=== PATIENT | male | born 1990 | race Caucasian/White ===

== ENCOUNTER 2020-09-23 19:55 | Emergency (ER) | payer OTHER ==
[2020-09-23] MEDS ORDERED: Sodium Chloride 0.9% 1000 ML 1,000 ML IV STA ×2 (20:12→21:56)
[2020-09-23] MEDS ORDERED: Sodium Chloride 0.9% 1000 ML 1,000 ML ONE ×2 (20:38→21:55)
[2020-09-23 20:42] LABS: BASOPHIL % 0.1 % (0.0-0.4); Basophil (Absolute #) 0.01 (0-0.4); Eosinophil % 0.1 % (0.00-5.0); Eosinophil (Absolute #) 0.01 (0-0.5); Hematocrit 49.3 % (42-50); Hemoglobin 16.8 gm/dl (12.5-18.0); Lymphocyte (Absolute #) 1.32 (1.0-4.6); Lymphocytes % 7.4 % (24.0-44.0); Mean Cell Volume 91.8 fl (78-100); Mean Corpuscular Hemoglobin 31.3 pg (26-32); Mean Corpuscular Hgb Concent. 34.1 g/dl (32-36); Mean Platelet Volume 10.7 fl (7.5-11.0); Monocyte (Absolute #) 1.09 (0.0-1.3); Monocytes % 6.1 % (0.0-12.0); Neutrophil % 86.3 % (36.0-66.0); Platelet Count 264 K/mm3 (150-450); Red Blood Count 5.37 M/mm3 (4.1-5.6); Red Cell Distribution Width 14.4 % (11.5-14.0); White Blood Count 17.7 K/mm3 (4.0-10.5)
[2020-09-23 21:00] LABS: ALBUMIN 5.7 g/dL (3.5-5.0); ALKALINE PHOSPHATASE 78 U/L (38-126); ANION GAP 24.2 MEQ/L (5-15); BLOOD UREA NITROGEN 15 mg/dL (9-20); CHLORIDE 101 mmol/L (98-107); Calcium 10.4 mg/dL (8.4-10.2); Carbon Dioxide 23 mmol/L (22-30); Creatinine 1 1.87 mg/dL (0.66-1.25); EST GLOMERULAR FILTRATION RATE 45.6 ML/MIN; ETHYL ALCOHOL < 10 mg/dL (0-10); Glucose 125 mg/dL (74-106); Potassium 4.6 mmol/L (3.5-5.1); SALICYLATE < 1.0 mg/dL (2-20); SGOT/AST 87 U/L (17-59); SODIUM 144 mmol/L (137-145); Total Protein 8.7 g/dL (6.3-8.2)
[2020-09-23 21:06] LABS: SGPT/ALT 89 U/L (0-50)
--- NOTE | 2020-09-23 21:56 | ERPHSYRPT ---
- History of Present Illness Time Seen by Provider: 09/23/20 20:00 Source: patient Exam Limitations: no limitations Patient Subjective Stated Complaint: pt brought in by Police for medical clearance/help Triage Nursing Assessment: Pt brought in by police for medial clearance/work up. Pt denies any thoughts of suicide of homicide. Pt was picked up at his grandparents home where he was jittery, chewing on plastic and cords, tearing up things, acting as he's on drugs and the grandparents want him to get help. He just got out of alf yesterday. Pt pupils are dilated largely, he is very sweaty and jittery but has been cooperative for the most part. Officers in room with pt. Pt does not want to consent for blood draw so officer was going to go ED pt. Physician History: Patient is a 30-year-old male presents to our emergency room escorted by police for evaluation of self-harm. Patient was just released from alf yesterday. He was at his grandparents house. Grandparents observed erratic dangerous behavior. Per report patient has been jittery. Patient has been chewing on plastic and cords. Police report that patient has been "tearing up things" at the grandparents house. Grandparents believe he is on drugs. Patient is sitting in bed. He is cooperative. Patient observed to be diaphoretic. Pupils are dilated. Patient denied homicidal suicidal ideation. However patient also denied using drugs. Patient initially declined work-up/blood draw however patient was encouraged by police and is not cooperative. Patient voices no other complaints or concerns at this time. Timing/Duration: today Severity of Symptoms-Max: mild Context related to: other Suicidal thoughts: gesture Associated Symptoms: angry, anxiety Previous symptoms: no prior history Allergies/Adverse Reactions: No Known Drug Allergies Allergy (Unverified 09/23/20 20:29) Home Medications: No Reportable Medications [No Reported Medications] 09/23/20 [History] Hx Tetanus, Diphtheria Vaccination/Date Given: Yes Hx Influenza Vaccination/Date Given: No Hx Pneumococcal Vaccination/Date Given: No Immunizations Up to Date: Yes Travel Risk - International Travel Have you traveled outside of the country in past 3 weeks: No - Coronavirus Screening Are you exhibiting any of the following symptoms?: No Close contact with a COVID-19 positive Pt in past 14-21 Days: No - Vaccine Status Have you recieved a Covid-19 vaccination: No - Past Medical History Pertinent Past Medical History: Yes Neurological History: No Pertinent History ENT History: No Pertinent History Cardiac History: No Pertinent History Respiratory History: No Pertinent History Endocrine Medical History: No Pertinent History Musculoskeletal History: No Pertinent History GI Medical History: No Pertinent History History: No Pertinent History Psycho-Social History: Anxiety, Bipolar, Depression, Other Male Reproductive Disorders: No Pertinent History Other Medical History: PTSD - Past Surgical History Past Surgical History: No - Social History Smoking Status: Former smoker Exposure to second hand smoke: Yes Drug Use: marijuana Patient Lives Alone: No - Review of Systems Constitutional: No Symptoms, No Fever, No Chills Eyes: No Symptoms Ears, Nose, & Throat: No Symptoms Respiratory: No Symptoms, No Cough, No Dyspnea Cardiac: No Symptoms, No Chest Pain, No Edema, No Syncope Abdominal/Gastrointestinal: No Symptoms, No Abdominal Pain, No Nausea, No Vomiting, No Diarrhea Genitourinary Symptoms: No Symptoms, No Dysuria Musculoskeletal: No Symptoms, No Back Pain, No Neck Pain Skin: No Symptoms, No Rash Neurological: No Symptoms, No Dizziness, No Focal Weakness, No Sensory Changes Psychological: No Symptoms Endocrine: No Symptoms Hematologic/Lymphatic: No Symptoms Immunological/Allergic: No Symptoms All Other Systems: Reviewed and Negative - Nursing Vital Signs Nursing Vital Signs: Initial Vital Signs Temperature 97.8 F 09/23/20 19:58 Pulse Rate 168 H 09/23/20 19:58 Respiratory Rate 22 09/23/20 19:58 O2 Sat by Pulse Oximetry 98 09/23/20 19:58 Pain Scale Pain Intensity 0 - Physical Exam General Appearance: mild distress (Patient appears agitated and anxious.) Eyes, Ears, Nose, Throat Exam: normal ENT inspection, moist mucous membranes Neck Exam: normal inspection, non-tender, supple Respiratory Exam: normal breath sounds, lungs clear, No respiratory distress Cardiovascular Exam: regular rate/rhythm, No edema Gastrointestinal/Abdominal Exam: soft, No tenderness, No distention Extremities Exam: normal inspection, normal range of motion, No evidence of injury, No edema Current Suicidality: denies suicide plan Neurological Exam: alert, core piler II-XII nml as tested, oriented x 3 Appearance: denies illness, disheveled, impaired insight Behavior/Eye Contact/Speech: good eye contact, agitated Thoughts/Hallucinations: normal thought pattern Skin Exam: normal color, warm, dry, No rash SpO2 Interpretation: normal SpO2: 96 O2 Delivery: Room Air - Course Nursing assessment & vital signs reviewed: Yes EKG Interpreted by Me: RATE ([id number]), Sinus Tach, NORMAL AXIS, NORMAL INTERVALS Ordered Tests: Active Orders 24 hr Category Date Time Status IV Insertion STAT Care 09/23/20 20:12 Active CBC W DIFF Stat Lab 09/23/20 20:35 Completed CK (IN-HOUSE) [CK-Creatinine Phosphokinase] Stat Lab 09/23/20 21:34 Completed CMP Stat Lab 09/23/20 20:35 Completed CULTURE,URINE Stat Lab 09/23/20 22:58 Received ETHYL ALCOHOL Stat Lab 09/23/20 20:35 Completed SALICYLATE Stat Lab 09/23/20 20:35 Completed UA W/RFX UR CULTURE Stat Lab 09/23/20 22:58 Completed Urine Triage Profile Stat Lab 09/23/20 22:58 Completed Medication Summary Discontinued Medications Generic Name Dose Route Start Last Admin Trade Name Freq PRN Reason Stop Dose Admin Haloperidol Lactate 5 mg 09/23/20 23:48 09/23/20 23:59 Haldol 5 Mg IM 09/23/20 23:49 5 mg STAT ONE Administration Haloperidol Lactate Confirm 09/23/20 23:58 Haldol 5 Mg Administered 09/23/20 23:59 Dose 5 mg .ROUTE .STK-MED ONE Sodium Chloride 1,000 mls @ 999 mls/hr 09/23/20 20:12 09/23/20 22:00 Sodium Chloride 0.9% 1000 Ml IV 09/23/20 21:12 Infused .Q1H1M STA Infusion Sodium Chloride Confirm 09/23/20 20:38 Sodium Chloride 0.9% 1000 Ml Administered 09/23/20 20:39 Dose 1,000 mls @ ud .ROUTE .STK-MED ONE Sodium Chloride 1,000 mls @ 999 mls/hr 09/23/20 21:56 09/23/20 21:59 Sodium Chloride 0.9% 1000 Ml IV 09/23/20 22:56 999 mls/hr .Q1H1M STA Administration Sodium Chloride Confirm 09/23/20 21:55 Sodium Chloride 0.9% 1000 Ml Administered 09/23/20 21:56 Dose 1,000 mls @ ud .ROUTE .STK-MED ONE Ketamine HCl 86 mg 09/23/20 22:39 09/23/20 23:10 Ketamine Hcl 50 Mg/Ml IM 09/23/20 22:40 86 mg STAT ONE Administration Lorazepam 2 mg 09/23/20 23:48 09/23/20 23:59 Ativan 2 Mg/1 Ml Vial IM 09/23/20 23:49 2 mg STAT ONE Administration Lorazepam Confirm 09/23/20 23:58 Ativan 2 Mg/1 Ml Vial Administered 09/23/20 23:59 Dose 2 mg .ROUTE .STK-MED ONE Lab/Rad Data: Laboratory Result Diagrams 09/23/20 20:35 09/23/20 20:35 Laboratory Results 09/23/20 09/23/20 09/23/20 Range/Units 22:58 22:58 21:34 WBC (4.0-10.5) K/mm3 RBC (4.1-5.6) M/mm3 Hgb (12.5-18.0) gm/dl Hct (42-50) % MCV (78-100) fl MCH (26-32) pg MCHC (32-36) g/dl RDW (11.5-14.0) % Plt Count (150-450) K/mm3 MPV (7.5-11.0) fl Gran % (36.0-66.0) % Eos # (Auto) (0-0.5) Absolute Lymphs (auto) (1.0-4.6) Absolute Monos (auto) (0.0-1.3) Lymphocytes % (24.0-44.0) % Monocytes % (0.0-12.0) % Eosinophils % (0.00-5.0) % Basophils % (0.0-0.4) % Absolute Granulocytes (1.4-6.9) Basophils # (0-0.4) Sodium (137-145) mmol/L Potassium (3.5-5.1) mmol/L Chloride (98-107) mmol/L Carbon Dioxide (22-30) mmol/L Anion Gap (5-15) MEQ/L BUN (9-20) mg/dL Creatinine (0.66-1.25) mg/dL Estimated GFR ML/MIN Glucose (74-106) mg/dL Calcium (8.4-10.2) mg/dL Total Bilirubin (0.2-1.3) mg/dL AST (17-59) U/L ALT (0-50) U/L Alkaline Phosphatase (38-126) U/L Creatine Kinase 233 H (55-170) U/L Serum Total Protein (6.3-8.2) g/dL Albumin (3.5-5.0) g/dL Urine Color YELLOW (YELLOW) Urine Appearance CLOUDY (CLEAR) Urine pH 5.0 (5-6) Ur Specific [place] 1.018 (1.005-1.025) Urine Protein 30 (Negative) Urine Ketones TRACE (NEGATIVE) Urine Blood MODERATE (0-5) Jay/ul Urine Nitrite NEGATIVE (NEGATIVE) Urine Bilirubin NEGATIVE (NEGATIVE) Urine Urobilinogen NEGATIVE (0-1) mg/dL Ur Leukocyte Esterase NEGATIVE (NEGATIVE) Urine WBC (Auto) 11-15 (0-5) /HPF Urine RBC (Auto) 16-25 (0-2) /HPF U Hyaline Cast (Auto) 26-50 (0-2) /LPF U Epithel Cells (Auto) NONE (FEW) /HPF Urine Bacteria (Auto) FEW (NEGATIVE) /HPF Urine Mucus (Auto) SLIGHT (NEGATIVE) /HPF Urine Culture Reflexed YES (NO) Urine Glucose NEGATIVE (NEGATIVE) mg/dL Salicylates (2-20) mg/dL Urine Opiates Level NEGATIVE (NEGATIVE) Ur Methadone NEGATIVE (NEGATIVE) Urine Barbiturates NEGATIVE (NEGATIVE) Ur Phencyclidine (PCP) NEGATIVE (NEGATIVE) Urine Amphetamine POSITIVE (NEGATIVE) U Benzodiazepine Level NEGATIVE (NEGATIVE) Urine Cocaine NEGATIVE (NEGATIVE) Urine Marijuana (THC) NEGATIVE (NEGATIVE) Ethyl Alcohol (0-10) mg/dL 09/23/20 09/23/20 Range/Units 20:35 20:35 WBC 17.7 H (4.0-10.5) K/mm3 RBC 5.37 (4.1-5.6) M/mm3 Hgb 16.8 (12.5-18.0) gm/dl Hct 49.3 (42-50) % MCV 91.8 (78-100) fl MCH 31.3 (26-32) pg MCHC 34.1 (32-36) g/dl RDW 14.4 H (11.5-14.0) % Plt Count 264 (150-450) K/mm3 MPV 10.7 (7.5-11.0) fl Gran % 86.3 H (36.0-66.0) % Eos # (Auto) 0.01 (0-0.5) Absolute Lymphs (auto) 1.32 (1.0-4.6) Absolute Monos (auto) 1.09 (0.0-1.3) Lymphocytes % 7.4 L (24.0-44.0) % Monocytes % 6.1 (0.0-12.0) % Eosinophils % 0.1 (0.00-5.0) % Basophils % 0.1 (0.0-0.4) % Absolute Granulocytes 15.30 H (1.4-6.9) Basophils # 0.01 (0-0.4) Sodium 144 (137-145) mmol/L Potassium 4.6 (3.5-5.1) mmol/L Chloride 101 (98-107) mmol/L Carbon Dioxide 23 (22-30) mmol/L Anion Gap 24.2 H (5-15) MEQ/L BUN 15 (9-20) mg/dL Creatinine 1.87 H (0.66-1.25) mg/dL Estimated GFR 45.6 ML/MIN Glucose 125 H (74-106) mg/dL Calcium 10.4 H (8.4-10.2) mg/dL Total Bilirubin 0.50 (0.2-1.3) mg/dL AST 87 H (17-59) U/L ALT 89 H (0-50) U/L Alkaline Phosphatase 78 (38-126) U/L Creatine Kinase (55-170) U/L Serum Total Protein 8.7 H (6.3-8.2) g/dL Albumin 5.7 H (3.5-5.0) g/dL Urine Color (YELLOW) Urine Appearance (CLEAR) Urine pH (5-6) Ur Specific [place] (1.005-1.025) Urine Protein (Negative) Urine Ketones (NEGATIVE) Urine Blood (0-5) Jay/ul Urine Nitrite (NEGATIVE) Urine Bilirubin (NEGATIVE) Urine Urobilinogen (0-1) mg/dL Ur Leukocyte Esterase (NEGATIVE) Urine WBC (Auto) (0-5) /HPF Urine RBC (Auto) (0-2) /HPF U Hyaline Cast (Auto) (0-2) /LPF U Epithel Cells (Auto) (FEW) /HPF Urine Bacteria (Auto) (NEGATIVE) /HPF Urine Mucus (Auto) (NEGATIVE) /HPF Urine Culture Reflexed (NO) Urine Glucose (NEGATIVE) mg/dL Salicylates < 1.0 L (2-20) mg/dL Urine Opiates Level (NEGATIVE) Ur Methadone (NEGATIVE) Urine Barbiturates (NEGATIVE) Ur Phencyclidine (PCP) (NEGATIVE) Urine Amphetamine (NEGATIVE) U Benzodiazepine Level (NEGATIVE) Urine Cocaine (NEGATIVE) Urine Marijuana (THC) (NEGATIVE) Ethyl Alcohol < 10 (0-10) mg/dL - Progress Progress: improved Progress Note: [facility] has no beds available. Case discussed with Dr. Johnson of [facility]. We are currently on the waiting list. We contacted Dr. CLEMENS of [facility] who accepts transfer. Patient currently sleeping after administration of Haldol and Ativan. Vital stable. Patient received IV fluids. 09/24/20 01:35 Counseled pt/family regarding: lab results, diagnosis - Departure Departure Disposition: Transfer Clinical Impression: Elevated CK, Acute renal injury, Leukocytosis, High anion gap metabolic acidosis, Hematuria, Urinary cast, hyaline, Methamphetamine abuse Condition: Stable Critical Care Time: No Referrals: DOCTOR,NO FAMILY [Primary Care Provider] -
[2020-09-23] MEDS ORDERED: Ketamine HCl 50 MG/ML IM ONE (22:39)
[2020-09-23 23:18] LABS: Appearance CLOUDY (CLEAR); Bacteria FEW /HPF (NEGATIVE); Bilirubin NEGATIVE (NEGATIVE); Blood MODERATE Ery/ul (0-5); Glucose NEGATIVE (NEGATIVE); Hyaline Casts 26-50 /LPF (0-2); Ketones TRACE (NEGATIVE); Leukocyte Esterase NEGATIVE (NEGATIVE); Mucus SLIGHT /HPF (NEGATIVE); Nitrite NEGATIVE (NEGATIVE); Protein,Urine Dip 30 (Negative); Specific Gravity 1.018 (1.005-1.025); Urobilinogen NEGATIVE mg/dL (0-1)
[2020-09-23 23:25] LABS: Barbiturate,Urine NEGATIVE (NEGATIVE); Benzodiazepine,Urine NEGATIVE (NEGATIVE); Cocaine,Urine NEGATIVE (NEGATIVE); Methadone,Urine NEGATIVE (NEGATIVE); Opiate,Urine NEGATIVE (NEGATIVE); PCP,Urine NEGATIVE (NEGATIVE); THC,Urine NEGATIVE (NEGATIVE)
[2020-09-23] MEDS ORDERED: Haldol 5 MG IM ONE (23:48)
[2020-09-23] MEDS ORDERED: Ativan 2 MG/1 ML VIAL IM ONE (23:48)
[2020-09-23 23:50] LABS: Amphetamine,Urine POSITIVE (NEGATIVE)
[2020-09-23] MEDS ORDERED: Haldol 5 MG ONE (23:58)
[2020-09-23] MEDS ORDERED: Ativan 2 MG/1 ML VIAL ONE (23:58)
[2020-09-24 02:35] VITALS: BP 121/78; PULSE 121; O2SAT 98
== END 2020-09-24 02:46 | disposition short-term general hospital (02) ==
LOC: ED 19:55
DX: R94.30 Abnormal result of cardiovascular function study, unspecified (principal); N17.9 Acute kidney failure, unspecified; D72.829 Elevated white blood cell count, unspecified; E87.2 Acidosis; R31.9 Hematuria, unspecified; R82.998 Other abnormal findings in urine; N28.89 Other specified disorders of kidney and ureter; F15.10 Other stimulant abuse, uncomplicated
CPT/HCPCS: 36000; 36415; 80053; 80307; 81001; 82550; 85025; 87086; 96360; 96372; 99285; G0480; J1630; J2060